=== PATIENT | male | born 1995 | race Hispanic/Latino ===

== ENCOUNTER 2016-08-22 10:05 | Emergency (ER) | payer OTHER ==
[~2016-08-22] VITALS: Ht 182.9 cm; Wt 130.4 kg
[~2016-08-22 10:05] MED LIST: NOMED
[2016-08-22 10:13] VITALS: BP 150/90; PULSE 79; RESP 16; O2SAT 96
--- NOTE | 2016-08-22 11:26 | DRSVH ---
PROCEDURE: X-RAY CHEST, TWO VIEWS ([id number]) INDICATIONS: chest pain x2 weeks TECHNIQUE: 2 views of the chest were acquired. COMPARISON: [facility], , CHEST 2VW, 11/26/2009, 23:42. FINDINGS: Surgical changes and devices: None. Lungs and pleura: No pleural effusions or pneumothorax. Lungs are clear. Mediastinum: Mediastinal contours are normal. Heart size is normal. Bones and chest wall: No suspicious bony abnormalities. Soft tissues appear unremarkable. IMPRESSION: No acute cardiopulmonary disease process. Dictated by: Lori Salas MD, PhD on 08/22/2016 at 11:24 Approved by: Lori Salas MD, PhD on 08/22/2016 at 11:24
--- NOTE | 2016-08-22 13:21 | ED.REPORT ---
HPI-Chest Pain Under 40 Date of Service Aug 22, 2016 ED Provider: Cristian Wilson PA-C Rod is a 21-year-old male with a 10 year history of smoking who presents with left chest tightness. Patient states the pains are present for approximately 2 weeks, does not radiate, is not particularly aggravated by exercise or relieved by rest. Describes the pain as tightness in his chest, which is aggravated by motion. He states he was unable to sleep well last night but not find a comfortable position. He admits to persistent cough, which is nonproductive and at baseline. He attributes it to smoking. Denies any medical history or other complaints. Nursing Notes Stated Complaint: CHEST PAIN Chief Complaint: Chest Pain-Non Cardiac Nature Nursing Notes Reviewed: Yes Allergies: Coded Allergies: No Known Allergies (Unverified , 09/07/14) verified Miscellaneous Medications No Historical Medication (No Historical Medication) Ea General Time Seen by MD: 13:08 Chief Complaint Chest pain Past Medical History Past Medical History Denies Past Surgical History Denies Smoking History Current Every Day Smoker Social History Alcohol Use: "Social" Drug Use: Denies drug use Occupation Works at [employer] Ambulatory Status Independent Review of Systems General: Denies fever, chills, malaise. HEENT: Denies congestion, headache, sore throat. Respiratory: Admits cough. Denies dyspnea, shortness of breath, wheezing. Cardiovascular: Admits chest pain, denies palpitations. Gastrointestinal: Denies vomiting, diarrhea, abdominal pain. Genitourinary: Denies frequency, urgency, dysuria, hematuria. Otherwise as noted in HPI. Physical Exam General: Well developed, obese, no acute distress. Head: Atraumatic, normocephalic. Eyes: No scleral icterus or injection. No discharge. Vision grossly intact. ENT: Voice clear, hearing grossly intact. Respiratory: Regular rate and rhythm. Breath sounds present, clear to auscultation and equal bilaterally. Cardiovascular: Regular rate and rhythm, without murmur, gallop or rub. No pedal edema. Gastrointestinal: Abdomen flat and non-tender without guarding or rebound. Bowel sounds normoactive. Skin: Warm and dry. Chest: Normal to inspection, nontender Neurological: Grossly nonfocal. Psychological: alert and oriented. Speech appropriate, linear and logical. Behavior appropriate. Initial Vital Signs Vital Signs (First) Date Time Temp Pulse Resp B/P Pulse Ox O2 Delivery O2 Flow Rate FiO2 08/22/16 10:13 36.9 79 16 150/90 96 Room Air Initial VS: Reviewed, Vital signs normal Interpretation & Diagnostics Lab Results Interpretation Result Diagram: 08/22/16 1405 08/22/16 1405 Test 08/22/16 14:05 White Blood Count 10.6th/mm3 (3.8-10.1) Red Blood Count 5.06mil/mm3 (4.40-5.80) Hemoglobin 14.9g/dL (13.8-17.2) Hematocrit 44.1% (41.0-50.0) Mean Corpuscular Volume 87.2fL (81-100) Mean Corpuscular Hemoglobin 29.4pg (27.0-35.0) Mean Corpuscular Hemoglobin Concent 33.8% (32.0-37.0) Red Cell Distribution Width 13.3% (12.3-15.4) Platelet Count 242bil/L (150-400) Neutrophils (%) (Auto) 54.8% (40-74) Lymphocytes (%) (Auto) 33.6% (14-46) Monocytes (%) (Auto) 8.2% (4-12) Eosinophils (%) (Auto) 2.1% (0-5) Basophils (%) (Auto) 0.5% (0-3) Sodium Level 139mEq/L (134-144) Potassium Level 4.2mEq/L (3.5-5.2) Chloride Level 100mEq/L (97-108) Carbon Dioxide Level 23mmol/L (18-29) Blood Urea Nitrogen 11mg/dL (6-20) Creatinine 0.68mg/dL (0.76-1.27) Estimat Glomerular Filtration Rate 154mL/min (>59) Glucose Level 86mg/dL (60-99) Calcium Level 9.3mg/dL (8.5-10.1) Total Bilirubin 0.3mg/dL (0.0-1.2) Aspartate Amino Transf (AST/SGOT) 24U/L (0-50) Alanine Aminotransferase (ALT/SGPT) 42U/L (0-44) Alkaline Phosphatase 92U/L (25-150) Troponin T < 0.010ug/L (0.0-0.011) Total Protein 7.4g/dL (6.4-8.4) Albumin 4.2g/dL (3.4-5.0) Hold Barr Top Tube Received (Received) Re-Eval/Medical Decision Med Decision/Clinical Course In brief this is an otherwise healthy 21-year-old male with a [id number] smoking history who presents with 2 weeks of chest tightness. Denies cough, radiation. Pain is not aggravated by exercise or relieved by rest. On physical examination, the pain is not reproducible. EKG and troponin are reassuring that this is unlikely to be cardiac. Chest x-ray shows no acute pathology. It is most likely musculoskeletal chest pain versus [place], pneumonia, lung mass, PE. Discharge patient with [id number] analgesics instructions, primary care referral and return precautions Discharge & Departure Primary Impression: Non-cardiac chest pain Disposition: Home Discharge Condition All VS Reviewed: Yes Condition: Stable Additional Instructions: Evaluation for chest tightness in the ED. History and physical are reassuring and all the tests we did indicate that the pain is not caused by your heart or lungs. Wells difficult for me to say exactly why you feel this tightness in your chest I do feel confident that is not a dangerous condition such as a heart attack, pneumonia or lung mass. Stable and safe for discharge to home. The pain is best treated with 400 mg of ibuprofen (Advil, Motrin) every 6 hours , or 1000 mg of acetaminophen (Tylenol) every 6 hours. These drugs can be taken at the same time for more severe pain. I encourage you to stop smoking, and consider this trip to the emergency Department a preview of what his to come if you do not. I have provided U referral for primary care follow-up. Please contact them to establish care and further address these symptoms if they do not resolve. Return to emergency department for any new or worsening symptoms including new or different chest pain, difficulty breathing, shortness of breath. Referrals: [facility] Provider for APC: Ronak Cuadra MD, Seth PA-C Aug 22, 2016 13:21
[2016-08-22 14:24] LABS: BASOPHILS % (AUTO) 0.5 % (0-3); EOSINOPHILS % (AUTO) 2.1 % (0-5); MONOCYTES % (AUTO) 8.2 % (4-12); Mean Corpuscular Hemoglobin 29.4 pg (27.0-35.0); Mean Corpuscular Volume 87.2 fL (81-100); NEUTROPHILS % (AUTO) 54.8 % (40-74); Platelet Count 242 bil/L (150-400)
[2016-08-22 14:51] LABS: TROPONIN T < 0.010 ug/L (0.0-0.011)
[2016-08-22 15:22] VITALS: BP 145/88; PULSE 82; RESP 18; O2SAT 95
== END 2016-08-22 15:23 | disposition home or self-care (01) ==
LOC: SED 10:05
DX: R07.89 Other chest pain (principal); R05 Cough; F17.200 Nicotine dependence, unspecified, uncomplicated